=== PATIENT | male | born 1990 | race Caucasian/White ===

== ENCOUNTER 2023-08-06 18:47 | Emergency (ER) | payer MEDICAID, OTHER ==
[~2023-08-06] VITALS: Ht 177.8 cm; Wt 59.0 kg
[2023-08-06 18:50] VITALS: O2SAT 99
[2023-08-06] MEDS: SILVER SULFADIAZINE 1% CREAM 25GM TOP ONE (23:45)
[2023-08-07] MEDS: TETANUS, DIPHTHERIA, PERTUSSIS VAC/PF 0.5ML (>10YR OLD) IM ONE (00:20)
[2023-08-07] MEDS: HYDROCODONE/ACETAMINOPHEN 5/325MG TABLET PO ONE (00:21)
[2023-08-07 01:00] VITALS: TEMP 98.2
[2023-08-07] MEDS ORDERED: SILV50CR31 TP (01:08)
[2023-08-07] MEDS ORDERED: CEPH500C2 MT (01:08)
[2023-08-07] MEDS ORDERED: IBUP-2029 MT (01:08)
[2023-08-07 01:30] VITALS: BP 126/78; PULSE 108; RESP 16
== END 2023-08-07 01:57 | disposition home or self-care (01) ==
LOC: ER 18:47
DX: T25.122A Burn of first degree of left foot, initial encounter (principal); E11.9 Type 2 diabetes mellitus without complications; Z85.9 Personal history of malignant neoplasm, unspecified; X19.XXXA Contact with other heat and hot substances, initial encounter; Y93.89 Activity, other specified; Y92.89 Other specified places as the place of occurrence of the external cause; Y99.8 Other external cause status
CPT/HCPCS: 16000; 90471; 90715; 99283